=== PATIENT | female | born 1990 | race Caucasian/White ===

== ENCOUNTER → 2017-10-26 11:59 | Outpatient (CLI) | payer OTHER, SELFPAY ==
[2017-10-26 11:12] VITALS: BP 114/66; BMI 20.9
--- NOTE | 2017-10-26 12:02 | US_ITS ---
STUDY: SECOND AND THIRD TRIMESTER OBSTETRICAL ULTRASOUND REASON FOR EXAM: Female, 27 years old. Routine survey. LMP: June 07, 2017 TECHNIQUE: Transabdominal PRIOR ULTRASOUND: None. FINDINGS: There is a single intrauterine fetus. The fetus is in a variable presentation. There is demonstrated cardiac activity with a heart rate of 150 bpm. There is a normal amniotic fluid volume. The largest amniotic fluid pocket measures 6.3 cm x 4.9 cm. The placenta is anterior in location and is not low lying. There are Grade 0 placental changes. A placental badillo is seen measuring 2.8 cm x 1.3 cm x 1.1 cm. The cervix measures 4.2 cm in length. The adnexal regions are not visualized. BIOMETRY: BPD: 4.84 cm: 20 weeks, 5 days HC: 18.58 cm: 21 weeks, 0 days AC: 16.68 cm: 21 weeks, 5 days FL: 3.42 cm: 20 weeks, 6 days CI: 75% FL/BPD: 71% FL/HC: FL/AC: 21% HC/AC: 1.11 age by current US: 21 weeks, 1 days. RAMA by current US: March 07, 2018. Estimated weight: 407 grams, +/- 60 grams, 94 %. Age by LMP: 20 weeks, 1 days. RAMA by LMP: March 14, 2018. ANATOMY: Gender: Male Cranium: Normal lateral ventricles. Normal choroid plexus. Normal cerebellum. Normal cisterna magna. Normal face, nose and lips. Chest: Normal 4-chamber heart. Abdomen/Pelvis: Normal diaphragm. Normal stomach. Normal abdominal wall. Normal cord insertion. Normal 3 vessel cord. Normal kidneys. Normal bladder. Spine: Normal cervical spine. Normal thoracic spine. Normal lumbar spine. Normal sacrum. Extremities: Normal bilateral upper extremities. Normal bilateral lower extremities. US/OB Anatomy Scan IMPRESSION: Single live intrauterine gestation with a mean gestational age of 21 weeks and 1 day. Electronically Signed: Fitz Juan MD at 13:54 EST Tel [phone], Service support ,
== END ==
PROVIDERS: Family Provider Family Medicine; PCP Family Medicine; Visit Provider Obstetrics & Gynecology
DX: Z34.91 Encounter for supervision of normal pregnancy, unspecified, first trimester (principal); Z3A.00 Weeks of gestation of pregnancy not specified
CPT/HCPCS: 76805

== ENCOUNTER 2017-12-03 20:10 | Outpatient (CLI) | payer OTHER, SELFPAY ==
[2017-12-03 20:33] VITALS: BMI 21.1
[2017-12-03 20:50] LABS: Mucous, Urine 0 SEEN /hpf (<or=2+); Red Blood Cells-Urine 0 SEEN /hpf (0-5)
[2017-12-03 20:57] LABS: Color, Urine Yellow (Yellow); Glucose, Dipstick Normal (Normal); Ketone-Dipstick Negative (Negative); Leukocyte Esterase-Dipstick 25 /ul (Negative); Nitrite-Dipstick Negative (Negative); Occult Blood-Urine Negative /ul (Negative); Protein-Dipstick Negative (Negative); Specific Gravity, Urine 1.025 (1.002-1.030); Urine Bilirubin Dipstick Negative (Negative); Urine Clarity Sl. Cloudy (Clear); Urine Urobilinogen 1 mg/dl (Normal)
[2017-12-03 21:43] LABS: Squamous Epithelial Cells - UA 0-5 SEEN /hpf (5-10); White Blood Cells 5-10 SEEN /hpf (0-5)
[2017-12-03 21:44] LABS: Bacteria 1+ /hpf (None Seen)
[2017-12-03] MEDS: Lactated Ringers 1,000 ML 999 ML IV (22:39)
[2017-12-03] MEDS: Cefazolin 2 GM in 0.9% Normal Saline 100 ML IV (22:59)
[2017-12-03] MEDS: Lactated Ringers 1,000 ML 200 ML IV (23:39)
[2017-12-04 00:40] VITALS: RESP 18
--- NOTE | 2017-12-04 07:08 | OB.TRI.NOTE ---
History of Present Illness Date of Service: 12/03/17 Was patient seen by the physician?: No Reason For Visit: CRAMPING, BLEEDING Date of Service: 12/03/17 Gestational age: 25 weeks History of Present Illness: 25 weeks presents with lower pelvic cramping and dysuria, possible uti on ua. cervix closed reassruing tracing, irritability seen on monitor Home Medications Medication Instructions Recorded omeprazole 20 mg capsule,delayed 40 mg PO QDAY 08/31/17 release 1 tab PO QDAY 08/31/17 vitamin,calcium,wcucfzch-slmn-riuob acid tablet Ferrous Sulfate [Iron] 325 mg PO QHS 12/03/17 Allergies No Known Allergies Allergy (Verified 12/03/17 20:32) Physical Exam Vitals: Vital Signs Resp 18 12/04/17 00:40 NST - FHR Rate Baby A Baseline: 140 Variability:: Moderate Accelerations:: 10 x 10 Decelerations:: None NST Reactive:: Yes FHR Category:: Category I Uterine Activity:: irritability Impression/Plan 27 yo 25w4d presents with uti, threatened ptl no cervical change, ancef given will dc home on keflex.
== END 2017-12-04 00:40 | disposition home or self-care (01) ==
LOC: WPOUT 20:15 → WP 20:16
PROVIDERS: Family Provider Family Medicine; PCP Family Medicine; Visit Provider Obstetrics & Gynecology
DX: O23.42 Unspecified infection of urinary tract in pregnancy, second trimester (principal); O47.02 False labor before 37 completed weeks of gestation, second trimester; Z3A.25 25 weeks gestation of pregnancy
CPT/HCPCS: 96361; 96365; 59025; 59050; 81001; 87086; 87088; 99218; J7120; G0378

== ENCOUNTER → 2017-12-21 11:02 | Outpatient (CLI) | payer OTHER, SELFPAY ==
[2017-12-21 11:28] LABS: Absolute Lymphocyte Count 1.05 X10^3/ul (0.83-4.51); Absolute Neutrophil Count 5.8 X10^3/uL (2.0-7.7); Eosinophil# 0.12 X10^3/uL; Eosinophils% 1.6 % (0-5); Hematocrit 32.7 % (37-47); Hemoglobin 10.7 g/dl (12.0-15.0); Lymphocyte # 1.05 X10^3/ul (4.0); Mean Corp Hgb Conc 32.7 g/gl (32-36); Mean Corpuscular Hgb 27.9 pg (27.0-32.0); Mean Corpuscular Volume 85.2 fL (81-99); Mean Platelet Vol. 9.8 fl (6.2-12.0); Monocyte# 0.56 X10^3/uL; Monocyte% 7.5 % (0-10); Neutrophil # 5.76 X10^3/uL (2.7-7.7); Neutrophil % 76.8 % (47-70); Platelet Count 240 K/mm3 (150-450); RBC Distribution Width CV 14.9 % (11.6-14.6); RBC Distribution Width SD 46.9 fl (35.1-43.9); Red Blood Count 3.84 M/mm3 (4.2-5.4); White Blood Count 7.5 K/mm3 (4.4-11.0)
[2017-12-21 11:29] LABS: POSITIVE COUNT NO; POSITIVE DIFFERENTIAL NO; POSITIVE MORPHOLOGY NO
[2017-12-21 11:45] LABS: Glucose Challenge Gest 1H 50g 115 mg/dL (70-140)
== END ==
PROVIDERS: Family Provider Family Medicine; PCP Family Medicine; Visit Provider Obstetrics & Gynecology
DX: Z34.90 Encounter for supervision of normal pregnancy, unspecified, unspecified trimester (principal)
CPT/HCPCS: 36415; 82950; 85025

== ENCOUNTER 2017-12-29 11:30 | Outpatient (CLI) | payer OTHER, SELFPAY ==
[2017-12-29 12:36] VITALS: BMI 22.8
[2017-12-29 12:36] LABS: Protein, Urine (Random) 14.2 mg/dL (<11.9); Protein:Creat Ratio 169 mg/g CRE (0-200)
--- NOTE | 2017-12-30 02:28 | OB.TRI.NOTE ---
History of Present Illness Date of Service: 12/29/17 Was patient seen by the physician?: Yes Reason For Visit: ELEVATED BP Date of Service: 12/29/17 Final RAMA: 03/14/18 Gestational age: 29 Weeks and 3 Days History of Present Illness: 27 yo @ 29w2d presents with elevated bps in her PCP office when diagnosed with bilateral ear infections and strep throat, although her bps are normal here in triage. she has also started having irritability contractions but no vb lof. Home Medications Medication Instructions Recorded omeprazole 20 mg capsule,delayed 40 mg PO QDAY 08/31/17 release 1 tab PO QDAY 08/31/17 vitamin,calcium,qbdrojxt-dkyk-incwy acid tablet Ferrous Sulfate [Iron] 325 mg PO QHS 12/03/17 Allergies No Known Allergies Allergy (Verified 12/21/17 11:33) - Pertinent Past Medical History Pertinent Past Medical History: Past Surgical History (Last Reviewed 12/21/17 @ 11:34 by Judi Mistry) History of tonsillectomy (Acute) Mom's Labs & Results 12/29/17 12:20 U Random Total Protein 14.2 H Urine Creatinine 83.90 Protein/Creatinin Ratio 169 Social History Smoking Status Never smoker All Active Problems (Last Reviewed 12/21/17 @ 11:34 by Judi Mistry) Anemia affecting (Acute) Supervision of normal (Acute) ROS: General: negative 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 GI: otherwise negative unless documented in hpi Physical Exam General: Alert Cardiovascular: Regular rate Lungs: Normal air movement Abdomen: Soft, Non Tender, Gravid Extremities:: No edema Estimated gestational size: Small for gestational age Presentation: Cephalic Cervix Dilation (cm): 0 Station: -3 Effacement (%): 0 NST - FHR Rate Baby A Baseline: 140 Variability:: Moderate Accelerations:: 15 x 15 Decelerations:: None NST Reactive:: Yes FHR Category:: Category I Uterine Activity:: q2-3 irritability Impression/Plan 29 weeks threatened PTL normal bps no cervical change- dc home ptl precautions
--- NOTE | 2017-12-30 02:33 | OB.TRI.HP_ITS ---
History of Present Illness Date of Service: 12/29/17 Was patient seen by the physician?: Yes Reason For Visit: ELEVATED BP Date of Service: 12/29/17 Final RAMA: 03/14/18 Gestational age: 29 Weeks and 3 Days History of Present Illness: 27 yo @ 29w2d presents with elevated bps in her PCP office when diagnosed with bilateral ear infections and strep throat, although her bps are normal here in triage. she has also started having irritability contractions but no vb lof. Home Medications Medication Instructions Recorded omeprazole 20 mg capsule,delayed 40 mg PO QDAY 08/31/17 release 1 tab PO QDAY 08/31/17 vitamin,calcium,jybfyakr-cysc-lkntt acid tablet Ferrous Sulfate [Iron] 325 mg PO QHS 12/03/17 Allergies No Known Allergies Allergy (Verified 12/21/17 11:33) - Pertinent Past Medical History Pertinent Past Medical History: Past Surgical History (Last Reviewed 12/21/17 @ 11:34 by Judi Mistry) History of tonsillectomy (Acute) Mom's Labs & Results 12/29/17 12:20 U Random Total Protein 14.2 H Urine Creatinine 83.90 Protein/Creatinin Ratio 169 Social History Smoking Status Never smoker All Active Problems (Last Reviewed 12/21/17 @ 11:34 by Judi Mistry) Anemia affecting (Acute) Supervision of normal (Acute) ROS: General: negative Tools And Parts Attendant: see hpi GI: otherwise negative unless documented in hpi Physical Exam General: Alert Cardiovascular: Regular rate Lungs: Normal air movement Abdomen: Soft, Non Tender, Gravid Extremities:: No edema Estimated gestational size: Small for gestational age Presentation: Cephalic Cervix Dilation (cm): 0 Station: -3 Effacement (%): 0 NST - FHR Rate Baby A Baseline: 140 Variability:: Moderate Accelerations:: 15 x 15 Decelerations:: None NST Reactive:: Yes FHR Category:: Category I Uterine Activity:: q2-3 irritability Impression/Plan 29 weeks threatened PTL normal bps no cervical change- dc home ptl precautions
== END 2017-12-29 13:40 | disposition home or self-care (01) ==
LOC: WPOUT 11:34 → WP 11:34
PROVIDERS: Family Provider Family Medicine; PCP Family Medicine; Visit Provider Obstetrics & Gynecology
DX: O47.03 False labor before 37 completed weeks of gestation, third trimester (principal); O36.5930 Maternal care for other known or suspected poor fetal growth, third trimester, not applicable or unspecified; O99.013 Anemia complicating pregnancy, third trimester; D64.9 Anemia, unspecified; Z79.899 Other long term (current) drug therapy; Z3A.29 29 weeks gestation of pregnancy
CPT/HCPCS: 59025; 59050; 82570; 84156; 99218; G0378

== ENCOUNTER → 2018-01-18 11:09 | Outpatient (CLI) | payer OTHER, SELFPAY ==
[2018-01-18 12:28] LABS: Absolute Lymphocyte Count 1.31 X10^3/ul (0.83-4.51); Basophil# 0.01 X10^3/uL; Basophil% 0.1 % (0-1); Eosinophils% 1.2 % (0-5); Hematocrit 30.3 % (37-47); Hemoglobin 10.1 g/dl (12.0-15.0); Lymphocyte # 1.31 X10^3/ul (4.0); Lymphocyte % 15.8 % (19-41); Mean Corp Hgb Conc 33.3 g/gl (32-36); Mean Corpuscular Hgb 28.3 pg (27.0-32.0); Mean Corpuscular Volume 84.9 fL (81-99); Mean Platelet Vol. 10.5 fl (6.2-12.0); Monocyte# 0.91 X10^3/uL; Neutrophil # 5.96 X10^3/uL (2.7-7.7); Neutrophil % 71.7 % (47-70); Platelet Count 267 K/mm3 (150-450); RBC Distribution Width CV 13.6 % (11.6-14.6); RBC Distribution Width SD 40.7 fl (35.1-43.9); Red Blood Count 3.57 M/mm3 (4.2-5.4); White Blood Count 8.3 K/mm3 (4.4-11.0)
[2018-01-18 12:33] LABS: POSITIVE COUNT NO; POSITIVE DIFFERENTIAL NO; POSITIVE MORPHOLOGY NO
== END ==
PROVIDERS: Family Provider Family Medicine; PCP Family Medicine; Visit Provider Nurse Practitioner Women's Health
DX: O99.019 Anemia complicating pregnancy, unspecified trimester (principal); Z3A.00 Weeks of gestation of pregnancy not specified
CPT/HCPCS: 36415; 85025

== ENCOUNTER 2018-01-21 12:10 | Outpatient (CLI) | payer OTHER, SELFPAY ==
[2018-01-21 12:26] VITALS: BMI 22.4
--- NOTE | 2018-01-21 13:27 | US_ITS ---
STUDY: SECOND AND THIRD TRIMESTER OBSTETRICAL ULTRASOUND - LIMITED REASON FOR EXAM: Female, 27 years old. Evaluate growth and SKINNY. Patient fell recently LMP: Unknown. PRIOR ULTRASOUND: 10/26/2017 TECHNIQUE: Transabdominal ultrasound evaluation was performed. FINDINGS: There is a single intrauterine fetus. The fetus is in a cephalic presentation. There is demonstrated cardiac activity with a heart rate of 146 bpm. There is a normal amniotic fluid volume. The amniotic fluid index (SKINNY) is 17.9 cm. The placenta is anterior in location and is not low lying. There are Grade 2 placental changes. The cervix measures 4.3 cm in length. BIOMETRY: BPD: 8.3 cm: 33 weeks, 4 days HC: 30.4 cm: 33 weeks, 6 days AC: 29.1 cm: 33 weeks, 1 days FL: 6.4 cm: 33 weeks, 0 days Age by LMP: 32 weeks, 4 days. RAMA by LMP: 03/14/2018. age by prior US: 33 weeks, 4 days. RAMA by prior US: 03/07/2018. age by current US: 33 weeks, 3 days. RAMA by current US: 03/08/2018. Estimated weight: 2121 grams, +/- 310 grams, 57 percentile. US/OB Limited With Biometrics IMPRESSION: Single live intrauterine as detailed above with SKINNY of 17.9 cm. No evidence of complications. Electronically Signed: Mickey Christy DO at 16:16 EDT Tel , Service support ,
[2018-01-21 14:32] LABS: Mucous, Urine 0 SEEN /hpf (<or=2+); Red Blood Cells-Urine 0 SEEN /hpf (0-5)
[2018-01-21 14:40] LABS: Color, Urine Yellow (Yellow); Glucose, Dipstick Normal (Normal); Ketone-Dipstick 50 mg/dl (Negative); Leukocyte Esterase-Dipstick 100 /ul (Negative); Nitrite-Dipstick Negative (Negative); Occult Blood-Urine Negative /ul (Negative); Protein-Dipstick Negative (Negative); Specific Gravity, Urine 1.005 (1.002-1.030); Urine Bilirubin Dipstick Negative (Negative); Urine Clarity Clear (Clear); Urine Urobilinogen Normal (Normal)
[2018-01-21 14:48] LABS: Bacteria 1+ /hpf (None Seen); Squamous Epithelial Cells - UA 0-5 SEEN /hpf (5-10); White Blood Cells 10-25 SEEN /hpf (0-5)
--- NOTE | 2018-01-21 15:00 | OB.TRI.NOTE ---
History of Present Illness Date of Service: 01/21/18 Was patient seen by the physician?: Yes Reason For Visit: MONITORING FOR FALL Date of Service: 01/21/18 Final RAMA: 03/14/18 Gestational age: 33 Weeks and 0 Days History of Present Illness: 27yo presents s/p fall at approximately 0700h with contractions. She was going up the stairs and caught her foot on the tread and fell down less than half the flight. She fell on her back and denies abdominal trauma, no lightheadedness before episode. She began abdulaziz approximately 2 hours later. She reports contractions q2-5 minutes and painful. No vaginal bleeding, leaking of fluid. Fetus is active. Her reports that she is prone to contractions however and was here 2-3 weeks ago for contractions. Home Medications Medication Instructions Recorded omeprazole 20 mg capsule,delayed 40 mg PO QDAY 08/31/17 release 1 tab PO QDAY 08/31/17 vitamin,calcium,wzzqtinf-gcwx-jcdba acid tablet Ferrous Sulfate [Iron] 325 mg PO QHS 12/03/17 Cephalexin [Keflex] 500 mg PO Q8H #18 cap 01/22/18 Allergies No Known Allergies Allergy (Verified 01/21/18 11:49) - Pertinent Past Medical History Pertinent Past Medical History: Prior section x 1 Physical Exam Vitals: Vital Signs Temp Pulse Resp BP 98.1 F 80 16 113/55 L 01/22/18 00:55 01/22/18 00:55 01/22/18 00:55 01/22/18 00:55 General: Alert, Oriented x3, Cooperative, No apparent distress Cardiovascular: Regular Rhythm Lungs: Normal air movement Abdomen: Soft, Non Tender, Non-Distended, Gravid, - - Fundus soft between contractions Extremities:: No edema Estimated gestational size: Appropriate for gestational size Cervix Dilation (cm): 0 Station: -3 Effacement (%): 0 NST - FHR Rate Baby A Baseline: 135 Variability:: Moderate Accelerations:: 15 x 15 Decelerations:: None NST Reactive:: Yes FHR Category:: Category I Uterine Activity:: 3/10 min Impression/Plan 27yo at 32 4/7wga with contractions following a fall, no abdominal trauma with contractions. -Rh positive -Suspect false labor, however, cannot rule out sx 2/2 fall. -Recommend prolonged observation -Oral rehydration -Consider d/c home when contractions sarah or 24 hours post fall. Code Visit Office Visits / Consults: [id number] OV L3 New
[2018-01-21] MEDS: Cephalexin 500 MG Capsule PO ×2 (16:49→23:07)
[2018-01-21] MEDS: Acetaminophen 500 MG Tablet 1000 MG PO (20:29)
--- NOTE | 2018-01-22 00:15 | OB.TRI.PN ---
Progress Notes Date of Service: 01/22/18 Progress Note: FHR remains Cat I and contractions spaced with no worsening of sx. Will d/c home.
[2018-01-22 00:55] VITALS: BP 113/55; PULSE 80; RESP 16; TEMP 36.7
[2018-01-22] MEDS: Cephalexin 500 MG Capsule PO (00:55)
== END 2018-01-22 00:55 | disposition home or self-care (01) ==
LOC: WPOUT 12:19 → WP 12:20
PROVIDERS: Family Provider Family Medicine; PCP Family Medicine; Visit Provider Obstetrics & Gynecology
DX: Z04.3 Encounter for examination and observation following other accident (principal); W10.9XXA Fall (on) (from) unspecified stairs and steps, initial encounter; Y93.9 Activity, unspecified; Y92.9 Unspecified place or not applicable; Y99.9 Unspecified external cause status; N85.8 Other specified noninflammatory disorders of uterus; O34.219 Maternal care for unspecified type scar from previous cesarean delivery; Z3A.33 33 weeks gestation of pregnancy
CPT/HCPCS: 59025; 59050; 76816; 81001; 87086; 87088; 99218; G0378

== ENCOUNTER 2018-01-26 22:04 | Observation (INO) | payer OTHER, SELFPAY ==
[2018-01-26 20:54] VITALS: BMI 22.4
[2018-01-26 22:19] LABS: Bacteria 0 SEEN /hpf (None Seen); Mucous, Urine 0 SEEN /hpf (<or=2+); Red Blood Cells-Urine 0 SEEN /hpf (0-5); White Blood Cells 0 SEEN /hpf (0-5)
[2018-01-26 22:27] LABS: Color, Urine Straw (Yellow); Glucose, Dipstick Normal (Normal); Ketone-Dipstick Negative (Negative); Leukocyte Esterase-Dipstick 25 /ul (Negative); Nitrite-Dipstick Negative (Negative); Occult Blood-Urine Negative /ul (Negative); Protein-Dipstick Negative (Negative); Urine Bilirubin Dipstick Negative (Negative); Urine Clarity Clear (Clear); Urine Urobilinogen Normal (Normal)
[2018-01-26 22:27] LABS: Fetal Fibronectin Negative
[2018-01-26 22:54] LABS: Squamous Epithelial Cells - UA 0-5 SEEN /hpf (5-10)
[2018-01-26] MEDS: Terbutaline 1 MG/ML Vial 0.25 MG SC (23:30)
[2018-01-26] MEDS: Lactated Ringers 1,000 ML 999 ML IV (23:30)
[2018-01-27] MEDS: 0.9% Saline Lock 10 ML Syringe IV (00:41)
[2018-01-27] MEDS: Betamethasone/Betamethasone 30 MG/5 ML Vial 12 MG IM (05:42)
--- NOTE | 2018-01-27 06:17 | OB.TRI.NOTE ---
History of Present Illness Date of Service: 01/27/18 Was patient seen by the physician?: Yes Reason For Visit: CRAMPING Date of Service: 01/27/18 Final RAMA: 03/14/18 Gestational age: 33 Weeks and 3 Days History of Present Illness: 27 yo @ 33w3d presents with contrcations varying in intensity. s he denies any vb or lof but had increased discharge. she deneis any other symptoms. Home Medications Medication Instructions Recorded omeprazole 20 mg capsule,delayed 40 mg PO QDAY 08/31/17 release 1 tab PO QDAY 08/31/17 vitamin,calcium,yzxgsufc-xbks-npuvj acid tablet Ferrous Sulfate [Iron] 325 mg PO QHS 12/03/17 Cephalexin [Keflex] 500 mg PO Q8H 01/26/18 Allergies No Known Allergies Allergy (Verified 01/26/18 22:04) - Pertinent Past Medical History Pertinent Past Medical History: Past Surgical History (Last Reviewed 01/21/18 @ 11:49 by Francheska Durham) History of tonsillectomy (Acute) Mom's Labs & Results 01/26/18 01/26/18 21:13 22:10 Urine Color Straw Urine Clarity Clear Urine pH 7.0 Ur Specific [place] 1.010 Urine Protein Negative Urine Glucose (UA) Normal Urine Ketones Negative Urine Occult Blood Negative Urine Nitrite Negative Urine Bilirubin Negative Urine Urobilinogen Normal Ur Leukocyte Esterase 25 H Urine RBC 0 SEEN Urine WBC 0 SEEN Ur Squamous Epith Cells 0-5 SEEN Urine Bacteria 0 SEEN Urine Mucus 0 SEEN Fibronectin Negative Social History Smoking Status Never smoker ROS: General: negative 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 isolated variables overnight Impression/Plan 27 yo @ 33w3d presents with threatened PTL 1. cervix not dilated and FFN negative. s/p terb x 1. 2. mild occasional variable decels- SKINNY 21 cm done at bedside and BPP done and 10/10. overall reassuring. 3. BMZ x 1 given.
--- NOTE | 2018-01-27 06:22 | OB.TRI.HP_ITS ---
History of Present Illness Date of Service: 01/27/18 Was patient seen by the physician?: Yes Reason For Visit: CRAMPING Date of Service: 01/27/18 Final RAMA: 03/14/18 Gestational age: 33 Weeks and 3 Days History of Present Illness: 27 yo @ 33w3d presents with contrcations varying in intensity. s he denies any vb or lof but had increased discharge. she deneis any other symptoms. Home Medications Medication Instructions Recorded omeprazole 20 mg capsule,delayed 40 mg PO QDAY 08/31/17 release 1 tab PO QDAY 08/31/17 vitamin,calcium,gfveuzmp-zwbo-cjzbb acid tablet Ferrous Sulfate [Iron] 325 mg PO QHS 12/03/17 Cephalexin [Keflex] 500 mg PO Q8H 01/26/18 Allergies No Known Allergies Allergy (Verified 01/26/18 22:04) - Pertinent Past Medical History Pertinent Past Medical History: Past Surgical History (Last Reviewed 01/21/18 @ 11:49 by Francheska Durham) History of tonsillectomy (Acute) Mom's Labs & Results 01/26/18 01/26/18 21:13 22:10 Urine Color Straw Urine Clarity Clear Urine pH 7.0 Ur Specific [place] 1.010 Urine Protein Negative Urine Glucose (UA) Normal Urine Ketones Negative Urine Occult Blood Negative Urine Nitrite Negative Urine Bilirubin Negative Urine Urobilinogen Normal Ur Leukocyte Esterase 25 H Urine RBC 0 SEEN Urine WBC 0 SEEN Ur Squamous Epith Cells 0-5 SEEN Urine Bacteria 0 SEEN Urine Mucus 0 SEEN Fibronectin Negative Social History Smoking Status Never smoker ROS: General: negative 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 isolated variables overnight Impression/Plan 27 yo @ 33w3d presents with threatened PTL 1. cervix not dilated and FFN negative. s/p terb x 1. 2. mild occasional variable decels- SKINNY 21 cm done at bedside and BPP done and 10/10. overall reassuring. 3. BMZ x 1 given.
[2018-01-27] MEDS: Acetaminophen 500 MG Tablet 1000 MG PO (07:31)
== END 2018-01-27 09:13 | disposition home or self-care (01) ==
LOC: WPOUT 01-27 09:17
PROVIDERS: Admitting Provider Obstetrics & Gynecology; Family Provider Family Medicine; PCP Family Medicine; Visit Provider Obstetrics & Gynecology
DX: O60.03 Preterm labor without delivery, third trimester (principal); Z3A.33 33 weeks gestation of pregnancy; O76 Abnormality in fetal heart rate and rhythm complicating labor and delivery
CPT/HCPCS: 96360; 96372; 59025; 59050; 76815; 81001; 82731; 99218; J7120; A4216; G0378; J0702

== ENCOUNTER 2018-01-28 06:49 | Outpatient (CLI) | payer OTHER, SELFPAY ==
[2018-01-28] MEDS: Betamethasone/Betamethasone 30 MG/5 ML Vial 12 MG IM (07:06)
--- NOTE | 2018-01-31 03:36 | OB.TRI.NOTE ---
History of Present Illness Date of Service: 01/28/18 Was patient seen by the physician?: No Reason For Visit: R/O LABOR History of Present Illness: celestone injection Home Medications Medication Instructions Recorded omeprazole 20 mg capsule,delayed 40 mg PO QDAY 08/31/17 release 1 tab PO QDAY 08/31/17 vitamin,calcium,cohaftda-qbal-vxhop acid tablet Ferrous Sulfate [Iron] 325 mg PO QHS 12/03/17 Cephalexin [Keflex] 500 mg PO Q8H 01/26/18 Allergies No Known Allergies Allergy (Verified 01/26/18 22:04) Impression/Plan follow up celestone injection
== END 2018-01-28 07:13 | disposition home or self-care (01) ==
LOC: WPOUT 06:53 → WP 06:54
PROVIDERS: Family Provider Family Medicine; PCP Family Medicine; Visit Provider Obstetrics & Gynecology
DX: Z34.90 Encounter for supervision of normal pregnancy, unspecified, unspecified trimester (principal); Z3A.00 Weeks of gestation of pregnancy not specified
CPT/HCPCS: 96372; 99218; G0378; J0702

== ENCOUNTER 2018-02-10 15:00 | Outpatient (CLI) | payer OTHER, SELFPAY ==
[2018-02-10 15:14] VITALS: BMI 22.3
--- NOTE | 2018-02-19 09:34 | OB.TRI.NOTE ---
- Problem List (1) Decreased movement Status: Acute History of Present Illness Reason For Visit: DECREASED MOVEMENT Allergies No Known Allergies Allergy (Verified 02/15/18 11:38) - Pertinent Past Medical History Surgical History: Past Surgical History (Last Reviewed 02/15/18 @ 11:37 by Phyllis Jarrell) History of tonsillectomy NST - FHR Rate Baby A Baseline: 140 Variability:: Moderate Accelerations:: 15 x 15 Decelerations:: None NST Reactive:: Yes FHR Category:: Category I Uterine Activity:: irritability
== END 2018-02-10 16:00 | disposition home or self-care (01) ==
LOC: WPOUT 15:09 → WP 15:10
PROVIDERS: Family Provider Family Medicine; PCP Family Medicine; Visit Provider Obstetrics & Gynecology
DX: O36.8190 Decreased fetal movements, unspecified trimester, not applicable or unspecified (principal); Z3A.00 Weeks of gestation of pregnancy not specified
CPT/HCPCS: 59025; 59050; 99218; G0378

== ENCOUNTER → 2018-02-15 15:17 | Outpatient (CLI) | payer OTHER, SELFPAY ==
[2018-02-15 16:19] LABS: Group B Strep DNA By PCR Negative (Negative); Internal Control PASS; Probe Check PASS; Specimen Processing Control PASS
== END ==
PROVIDERS: Family Provider Family Medicine; PCP Family Medicine; Visit Provider Obstetrics & Gynecology
DX: Z34.81 Encounter for supervision of other normal pregnancy, first trimester (principal)
CPT/HCPCS: 87081; 87653

== ENCOUNTER 2018-02-26 16:55 | Outpatient (CLI) | payer OTHER, SELFPAY ==
--- NOTE | 2018-02-26 16:55 | DT_ITS ---
This patient was seen during an EMR downtime February 21, 2018 - February 28, 2018. This patient may have a combination of paper and electronic documentation or all paper documentation. All documentation is viewable within the e-chart portion of [facility] for each patient visit.
[2018-03-01 21:09] LABS: ROM Internal Control Test YES-OK TO RESULT pt. (Internal QC); ROM Patient Test Negative (Negative)
== END 2018-02-26 18:05 | disposition home or self-care (01) ==
LOC: WPOUT 02-27 14:46 → WP 02-27 14:49
PROVIDERS: Family Provider Family Medicine; PCP Family Medicine; Visit Provider Obstetrics & Gynecology
DX: O47.9 False labor, unspecified (principal); Z3A.00 Weeks of gestation of pregnancy not specified
CPT/HCPCS: 59025; 59050; 84112; 99218; G0378

== ENCOUNTER 2018-03-06 15:05 | Outpatient (CLI) | payer OTHER, SELFPAY ==
[2018-03-06 15:24] VITALS: BMI 23.3
--- NOTE | 2018-03-06 17:00 | OB.TRI.NOTE ---
- Problem List (1) False labor Status: Acute History of Present Illness Date of Service: 03/06/18 Was patient seen by the physician?: Yes Reason For Visit: RULE OUT LABOR Date of Service: 03/06/18 History of Present Illness: regular ctx Allergies No Known Allergies Allergy (Verified 02/15/18 11:38) - Pertinent Past Medical History Surgical History: Past Surgical History (Last Reviewed 02/15/18 @ 11:37 by Phyllis Jarrell) History of tonsillectomy NST - FHR Rate Baby A Baseline: 130-140 Variability:: Moderate Decelerations:: None NST Reactive:: Yes FHR Category:: Category I Uterine Activity:: q 2-5 Impression/Plan false labor no cervical change dc home labor precautions
== END 2018-03-06 16:47 | disposition home or self-care (01) ==
LOC: WPOUT 15:15 → WP 15:16
PROVIDERS: Family Provider Family Medicine; PCP Family Medicine; Visit Provider Obstetrics & Gynecology
DX: O47.9 False labor, unspecified (principal); Z3A.00 Weeks of gestation of pregnancy not specified
CPT/HCPCS: 59025; 99218; G0378

== ENCOUNTER 2018-03-09 17:50 | Inpatient (IN) | payer OTHER, SELFPAY ==
[2018-03-09 18:20] VITALS: BMI 23.4
[2018-03-09] MEDS: Lactated Ringers 1,000 ML 50 ML IV ×2 (18:20→19:18)
[2018-03-09 18:35] LABS: Hematocrit 33.1 % (37-47); Hemoglobin 11.2 g/dl (12.0-15.0); Mean Corp Hgb Conc 33.8 g/gl (32-36); Mean Corpuscular Volume 82.8 fL (81-99); Mean Platelet Vol. 10.6 fl (6.2-12.0); Platelet Count 254 K/mm3 (150-450); RBC Distribution Width CV 14.5 % (11.6-14.6); Scan Indicated on CBC? Y/N NO; White Blood Count 13.5 K/mm3 (4.4-11.0)
[2018-03-09] MEDS: fentaNYL-bupivacaine (epidural) 100 ML BAG EPIDURAL (19:54)
[2018-03-09] MEDS: Amnioinfusion- 0.9% NS 1,000 ML IV.SOLN. 500 ML INTRA-UTER (20:23)
--- NOTE | 2018-03-09 20:27 | PCM.HP.OB ---
- Problem List (1) Active labor at term Status: Acute (2) Anemia affecting Status: Acute Qualifiers: (3) Supervision of normal Status: Acute Qualifiers: Comment: PRR RAMA 03/14/18 boy Kenneth PC Kera ryder History Date of Admission: 03/09/18 Final RAMA: 03/12/18 Gestational age: 39 Weeks and 4 Days History of this : This is a 27 year-old, at 39 weeks gestational age. Surgical History: Surgical History (Last Reviewed 03/09/18 @ 11:02 by Judi Mistry) History of tonsillectomy Z98.890, Z90.89 Allergies No Known Allergies Allergy (Verified 03/09/18 11:02) Home Medications: Home Medications omeprazole 20 mg capsule,delayed release 40 mg PO QDAY 08/31/17 vitamin,calcium,svtyiikx-posy-tpmwz acid tablet 1 tab PO QDAY 08/31/17 Ferrous Sulfate [Iron] 325 mg PO QHS 12/03/17 Smoking Status: Never smoker Alcohol: None Number of Fetus(es): 1 Heart Tracin min-mod variability reactive, isolated late decel. then recurrent periodic variables TOCO Analysis: q2-3 History Past Pregnancies: Past Pregnancies Pregancy History 2 Elective abortions Hx Para 1 Spontaneous abortions Hx # Term Pregnancies Ectopic pregnancies Hx # Pregnancies Multiple births # of living children Past Pregnancies Del. Date Name GA/Weeks Outcome Route Bth Weight Infant Gen Labor Lgth Anesthesia Del Locatn Provider FOB 12/07/11 Kera Le live - full term Female [place]/[facility] Vacceriello OB Visit RAMA Calculator Estimated Delivery Date 03/14/18 Based on Ultrasound Date 07/20/17 Current WG 39w 2d Number 1 Labs: Mom's Labs & Results 03/09/18 03/09/18 18:20 18:20 WBC 13.5 H RBC 4.00 L Hgb 11.2 L Hct 33.1 L MCV 82.8 MCH 28.0 MCHC 33.8 RDW 14.5 RDW Differential 44.0 H Plt Count 254 MPV 10.6 Blood Type A POSITIVE Antibody Screen NEGATIVE Course Did the patient receive Yes care? Labs Blood Type: A RH: POSITIVE RPR/VDRL/Syphilis Nonreactive Rubella status Immune HbSAg Negative Date Done: 09/23/17 Chlamydia Negative Gonorrhea Negative HIV/AIDS Non-Reactive Group B Strep: Negative Current Obstetrical History Gestational Diabetes No Incompetent Cervix No Infertility No IUGR No Macrosomia No Hypertension/Pre-eclampsia No Placenta Previa/Abruption No PTL/PROM No Uterine anomaly No Oligohydramnios No Polyhydramnios No Multiple gestation No Past Medical History Asthma No Diabetes No Hypertension No Heart disease No Mitral valve prolapse No Neurologic/Seizure disorder/ No Migraines Kidney disease No Liver disease No Varicosities No Clotting disorders/Hx of DVT No Thyroid Dysfunction No Other medical diseases No Psychiatric disorders No Major trauma No Abnormal PAP smear No Sleep apnea No Mammogram in the last 2 years No Social History Marital Status: Alleged father RYDER LE Hx Smoking No Smoking Status Never smoker How long have you used NA substances (years)? Expected Delivery Method: Spontaneous Vaginal Describe any other labor & delivery plans:: Expected Delivery Route/Plan. vaginal. Specific Issue/Plans. declines flu and genetic testing. MC given. labor support person: Ryder. pain management: epidural. cut cord/dad catch: cord yes, catch unsure. : undecided. control planned: vasectomy Review of Systems Constitutional: Denies: Fever, Malaise Eyes: Denies: Blurred vision, Vision Change HEENT: Denies: Head Aches, Visual Changes Cardiovascular: Denies: Chest Pain, Palpitations Respiratory: Denies: Cough, Shortness of Breath, Wheezing Gastrointestinal: Denies: Abdominal Pain, Diarrhea, Nausea, Vomiting Genitourinary: Denies: Dysuria, Hematuria Musculoskeletal: Denies: Joint Pain, Muscle pain Skin: Denies: Lesions, Rash Neurological: Denies: Blurred vision, Focal weakness, Headaches Psychiatric: Denies: Anxiety, Depression Endocrine: Denies: Heat/ Cold Intolerance Hematologic/ Lymphatic: Denies: Easy Bruising, Easy Bleeding Physical Exam General: Alert, Cooperative, No apparent distress HEENT: Atraumatic, Normocephalic. Negative for: Thyromegaly, Lymphadenopathy Cardiovascular: Regular rate Lungs: Normal air movement Abdomen: Soft, Non Tender, Gravid Neurological: Deep Tendon Reflexes 2+/4 and Symmetrical, Neuro grossly intact. Negative for: Clonus CLIENT RELATIONSHIP MANAGER: Normal external genitalia. Negative for: Vulvar lesions Estimated gestational size: Appropriate for gestational size Presentation: Cephalic Assessment/Plan All Active Problems (Last Reviewed 03/09/18 @ 11:02 by Judi Mistry) False labor (Acute) Active labor at term (Acute) Decreased movement (Resolved) labor in second trimester with delivery in third trimester (Resolved) Anemia affecting (Acute) Supervision of normal (Acute) This is a 27 year-old, at 39 weeks gestational age. IAL exp management amnioinfusion for variables, position changes. s/p epi gbs neg
--- NOTE | 2018-03-09 20:31 | HP.PCM_ITS ---
- Problem List (1) Active labor at term Status: Acute (2) Anemia affecting Status: Acute Qualifiers: (3) Supervision of normal Status: Acute Qualifiers: Comment: PRR RAMA 03/14/18 boy Rogelioelian JOHN Kera ryder History Date of Admission: 03/09/18 Final RAMA: 03/12/18 Gestational age: 39 Weeks and 4 Days History of this : This is a 27 year-old, at 39 weeks gestational age. Surgical History: Surgical History (Last Reviewed 03/09/18 @ 11:02 by Judi Mistry) History of tonsillectomy Z98.890, Z90.89 Allergies No Known Allergies Allergy (Verified 03/09/18 11:02) Home Medications: Home Medications omeprazole 20 mg capsule,delayed release 40 mg PO QDAY 08/31/17 vitamin,calcium,tvmxthho-sxkq-wdbvh acid tablet 1 tab PO QDAY 08/31/17 Ferrous Sulfate [Iron] 325 mg PO QHS 12/03/17 Smoking Status: Never smoker Alcohol: None Number of Fetus(es): 1 Heart Tracin min-mod variability reactive, isolated late decel. then recurrent periodic variables TOCO Analysis: q2-3 History Past Pregnancies: Past Pregnancies Pregancy History 2 2 Elective abortions Hx Para 1 Spontaneous abortions Hx # Term Pregnancies Ectopic pregnancies Hx # Pregnancies Multiple births # of living children Past Pregnancies Del. Date Name GA/Weeks Outcome Route Bth Weight Infant Gen Labor Lgth Anesthesia Del Locatn Provider FOB 12/07/11 Kera Le live - full term Female [place]/ Pom[facility] Vacceriello OB Visit RAMA Calculator 2 Estimated Delivery Date 03/14/18 Based on Ultrasound Date 07/20/17 Current WG 39w 2d Number 1 Labs: Mom's Labs & Results 03/09/18 03/09/18 18:20 18:20 WBC 13.5 H RBC 4.00 L Hgb 11.2 L Hct 33.1 L MCV 82.8 MCH 28.0 MCHC 33.8 RDW 14.5 RDW Differential 44.0 H Plt Count 254 MPV 10.6 Blood Type A POSITIVE Antibody Screen NEGATIVE Course Did the patient receive Yes care? Labs Blood Type: A RH: POSITIVE RPR/VDRL/Syphilis Nonreactive Rubella status Immune HbSAg Negative Date Done: 09/23/17 Chlamydia Negative Gonorrhea Negative HIV/AIDS Non-Reactive Group B Strep: Negative Current Obstetrical History Gestational Diabetes No Incompetent Cervix No Infertility No IUGR No Macrosomia No Hypertension/Pre-eclampsia No Placenta Previa/Abruption No PTL/PROM No Uterine anomaly No Oligohydramnios No Polyhydramnios No Multiple gestation No Past Medical History Asthma No Diabetes No Hypertension No Heart disease No Mitral valve prolapse No Neurologic/Seizure disorder/ No Migraines Kidney disease No Liver disease No Varicosities No Clotting disorders/Hx of DVT No Thyroid Dysfunction No Other medical diseases No Psychiatric disorders No Major trauma No Abnormal PAP smear No Sleep apnea No Mammogram in the last 2 years No Social History Marital Status: Alleged father RYDER LE Hx Smoking No Smoking Status Never smoker How long have you used NA substances (years)? Expected Delivery Method: Spontaneous Vaginal Describe any other labor & delivery plans:: Expected Delivery Route/Plan. vaginal. Specific Issue/Plans. declines flu and genetic testing. MC given. labor support person: Ryder. pain management: epidural. cut cord/dad catch: cord yes, catch unsure. : undecided. control planned : vasectomy Review of Systems Constitutional: Denies: Fever, Malaise Eyes: Denies: Blurred vision, Vision Change HEENT: Denies: Head Aches, Visual Changes Cardiovascular: Denies: Chest Pain, Palpitations Respiratory: Denies: Cough, Shortness of Breath, Wheezing Gastrointestinal: Denies: Abdominal Pain, Diarrhea, Nausea, Vomiting Genitourinary: Denies: Dysuria, Hematuria Musculoskeletal: Denies: Joint Pain, Muscle pain Skin: Denies: Lesions, Rash Neurological: Denies: Blurred vision, Focal weakness, Headaches Psychiatric: Denies: Anxiety, Depression Endocrine: Denies: Heat/ Cold Intolerance Hematologic/ Lymphatic: Denies: Easy Bruising, Easy Bleeding Physical Exam General: Alert, Cooperative, No apparent distress HEENT: Atraumatic, Normocephalic. Negative for: Thyromegaly, Lymphadenopathy Cardiovascular: Regular rate Lungs: Normal air movement Abdomen: Soft, Non Tender, Gravid Neurological: Deep Tendon Reflexes 2+/4 and Symmetrical, Neuro grossly intact. 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 Negative for: Vulvar lesions Estimated gestational size: Appropriate for gestational size Presentation: Cephalic Assessment/Plan All Active Problems (Last Reviewed 03/09/18 @ 11:02 by Judi Mistry) False labor (Acute) Active labor at term (Acute) Decreased movement (Resolved) labor in second trimester with delivery in third trimester ( Resolved) Anemia affecting (Acute) Supervision of normal (Acute) This is a 27 year-old, at 39 weeks gestational age. IAL exp management amnioinfusion for variables, position changes. s/p epi gbs neg
[2018-03-09] MEDS: Oxytocin 30 units/NS 500 ml 30 UNITS/500 ML IV.SOLN 334 UNITS IV (22:45)
--- NOTE | 2018-03-09 22:59 | PCM.OB.VAG ---
- Problem List (1) Active labor at term Status: Acute (2) Anemia affecting Status: Acute Qualifiers: (3) Supervision of normal Status: Acute Qualifiers: Comment: PRR RAMA 03/14/18 boy Kenneth Cote nate Vaginal Delivery Maternal Presentation: Active Labor 27 yo @ 39w4d IAL Amniotic Membrane Rupture Type: Artificial Amniotic Fluid Description: Lightly stained meconium Final RAMA: 03/12/18 Gestational age: 39 Weeks and 4 Days Date of Procedure: 03/09/18 Pre-Operative Diagnosis: ial Post-Operative Diagnosis: same Surgery/ Procedure Performed: Spontaneous Vaginal Delivery Type of Anesthesia: Epidural Description of Procedure: Patient began pushing and delivered the head in the SUHA presentation. The head was delivered atraumatically and a tight nuchal cord ?2 was identified and reduced over the infant's head. The anterior and posterior shoulders delivered without complication followed by the rest of the infant and the infant was placed on the maternal abdomen. Cord was clamped and cut and gentle traction was applied to the cord and the placenta delivered spontaneously immediately following it was noted to be intact with three-vessel cord. The perineum and vagina were inspected and noted to have a small 1st degree laceration that was reapired with a stitch of 3-0 monocryl. EBL was 200 cc. Patient and tolerated delivery well. Presentation: SUHA Placental Delivery Description: Spontaneous Placenta Disposition: [facility] Cord Vessel Description: 3 Vessels Cord Entanglement: Around neck x 2, tight Estimated Blood Loss: 200 Infant A gender: Male (1 minute): 7 (5 minute): 8 Episiotomy Description: None Laceration: Perineal Extension/lac, 1st degree Medications given after delivery: IV Pitocin Complications: None
[2018-03-09] MEDS: Oxytocin 30 units/NS 500 ml 30 UNITS/500 ML IV.SOLN 167 UNITS IV (23:15)
[2018-03-10] MEDS: 0.9% Saline Lock 10 ML Syringe IV (00:16)
[2018-03-10 00:35] VITALS: BP 117/60; PULSE 94; RESP 18; TEMP 37
[2018-03-10] MEDS: Naproxen 250 MG Tablet PO ×2 (02:06→18:44)
[2018-03-10 04:23] VITALS: BP 98/51; PULSE 85; RESP 18; TEMP 36.6
[2018-03-10] MEDS: Senna/Docusate Sodium 1 Tablet PO (07:50)
[2018-03-10] MEDS: Pantoprazole Sodium 40 MG Tablet PO (07:50)
[2018-03-10] MEDS: Prenatal Vits Tablet 1 TABLET PO (07:50)
[2018-03-10 08:30] VITALS: BP 110/61; PULSE 71; RESP 20; TEMP 36.4
[2018-03-10 12:00] VITALS: BP 117/56; PULSE 79; RESP 20; TEMP 36.4
[2018-03-10 16:00] VITALS: BP 118/63; PULSE 96; RESP 18; TEMP 36.8
[2018-03-10 20:41] VITALS: BP 102/57; PULSE 86; RESP 16; TEMP 36.4
[2018-03-10] MEDS: Ferrous Sulfate 325 MG Tablet PO (21:04)
[2018-03-11 00:48] VITALS: BP 119/68; PULSE 68; RESP 16; TEMP 36.3
[2018-03-11 08:50] VITALS: BP 110/56; PULSE 94; RESP 20; TEMP 36.6
--- NOTE | 2018-03-11 09:37 | PN.OBGYN_ITS ---
Patient Problems: Active and Suspected Problems (Last Reviewed 03/09/18 @ 11:02 by Judi Mistry) Active labor at term (Acute) Subjective: doing well no complaints - Physical Exam Vital Signs Temp Pulse Resp BP 97.9 F 94 20 H 110/56 L 03/11/18 08:50 03/11/18 08:50 03/11/18 08:50 03/11/18 08:50 Oxygen Delivery Method Room Air Weight: 132 lb 7.965 oz Body Mass Index (BMI) 23.4 Intake and Output for Last 24 Hours 03/09/18 03/10/18 03/11/18 23:59 23:59 23:59 Intake Total 1776 / 1776 334 / 334 Output Total 400 / 400 600 / 600 Balance 1376 / 1376 -266 / -266 Medical Necessity - Tobacco Use Smoking Status: Never smoker Assessment/Plan All Active Problems (Last Reviewed 03/09/18 @ 11:02 by Judi Mistry) False labor (Acute) Active labor at term (Acute) Decreased movement (Resolved) labor in second trimester with delivery in third trimester ( Resolved) Anemia affecting (Acute) Supervision of normal (Acute) s/p routine care dc home today
--- NOTE | 2018-03-11 09:38 | DCINST_ITS ---
Discharge Diet: No Restrictions Discharge Activity: Return to Normal Activity, May not drive while taking narcotic pain medications., May Shower May resume sexual activity in: 4-6 weeks Call your doctor if your incision/area has: Continuous Slow Oozing, Sudden Increased Bleeding, Increased Pain/ Swelling, Increased Redness, Foul Smelling Discharge Additional Instructions: If you experience any of the following, contact your healthcare provider. * Bleeding that soaks a pad every hour for 2 hours * Fever 100.4 or higher * Unrelieved incision or abdominal pain * Swelling, redness, discharge or bleeding from your incision or episiotomy site * Your incision begins to separate * Problems urinating (including inability to urinate or burning while urinating) . * Visual changes * Severe headache * Flu-like symptoms * Pain or redness in one of both of your breasts * Pain, warmth, tenderness or swelling in your legs, especially the calf area * Frequent nausea and vomiting * Symptoms of depression or anxiety If you experience any of the following, call 911 or go to the nearest Emergency Room. * Chest pain * Problems breathing * Seizure activity * Partial or complete paralysis of a body part, slurred speech, weakness or drooping of the face, or a sudden inability to walk or hold your balance Allergies/Adverse Reactions: Allergies No Known Allergies Allergy (Verified 03/09/18 11:02) Medications to take at Discharge omeprazole 20 mg capsule,delayed release 40 mg PO QDAY 08/31/17 vitamin,calcium,esyjeehg-qbhu-hkagf acid tablet 1 tab PO QDAY 08/31/17 Ferrous Sulfate [Iron] 325 mg PO QHS 12/03/17 Please Follow Up With: Herlinda Sol MD - [phone] When: Call to make an appointment with your doctor in 6 weeks. If you had elevated Blood pressure or 4th degree laceration you will need to be seen in 2 weeks. Primary Care Physician: Lillie Villanueva PA-C [Primary Care Provider] -
--- NOTE | 2018-03-11 09:38 | PCM.DCVAG ---
Discharge Diet: No Restrictions Discharge Activity: Return to Normal Activity, May not drive while taking narcotic pain medications., May Shower May resume sexual activity in: 4-6 weeks Call your doctor if your incision/area has: Continuous Slow Oozing, Sudden Increased Bleeding, Increased Pain/ Swelling, Increased Redness, Foul Smelling Discharge Additional Instructions: If you experience any of the following, contact your healthcare provider. Bleeding that soaks a pad every hour for 2 hours Fever 100.4 or higher Unrelieved incision or abdominal pain Swelling, redness, discharge or bleeding from your incision or episiotomy site Your incision begins to separate Problems urinating (including inability to urinate or burning while urinating). Visual changes Severe headache Flu-like symptoms Pain or redness in one of both of your breasts Pain, warmth, tenderness or swelling in your legs, especially the calf area Frequent nausea and vomiting Symptoms of depression or anxiety If you experience any of the following, call 911 or go to the nearest Emergency Room. Chest pain Problems breathing Seizure activity Partial or complete paralysis of a body part, slurred speech, weakness or drooping of the face, or a sudden inability to walk or hold your balance Allergies/Adverse Reactions: Allergies No Known Allergies Allergy (Verified 03/09/18 11:02) Medications to take at Discharge omeprazole 20 mg capsule,delayed release 40 mg PO QDAY 08/31/17 vitamin,calcium,zeravvjs-wxso-vclut acid tablet 1 tab PO QDAY 08/31/17 Ferrous Sulfate [Iron] 325 mg PO QHS 12/03/17 Please Follow Up With: Herlinda Sol MD - [phone] When: Call to make an appointment with your doctor in 6 weeks. If you had elevated Blood pressure or 4th degree laceration you will need to be seen in 2 weeks. Primary Care Physician: Lillie Villanueva PA-C [Primary Care Provider] -
[2018-03-11] MEDS: Pantoprazole Sodium 40 MG Tablet PO (10:44)
[2018-03-11] MEDS: Prenatal Vits Tablet 1 TABLET PO (11:29)
== END 2018-03-11 13:50 | disposition home or self-care (01) | DRG 775 ==
PROVIDERS: Admitting Provider Obstetrics & Gynecology; Family Provider Family Medicine; PCP Family Medicine; Visit Provider Obstetrics & Gynecology
DX: O99.02 Anemia complicating childbirth (principal); D64.9 Anemia, unspecified; O70.0 First degree perineal laceration during delivery; O77.0 Labor and delivery complicated by meconium in amniotic fluid; O69.1XX0 Labor and delivery complicated by cord around neck, with compression, not applicable or unspecified; Z3A.39 39 weeks gestation of pregnancy; Z37.0 Single live birth
CPT/HCPCS: 59025; 59050; 85027; 86850; 86900; 99218; J7030; J7120; A4216; G0378

== ENCOUNTER → 2022-11-11 | Outpatient (CLI) | payer OTHER, SELFPAY | END | disposition home or self-care (01) | LOC: LABSPEC 16:14 | PROVIDERS: PCP Family Medicine; Referring Provider Obstetrics & Gynecology; Visit Provider Obstetrics & Gynecology | DX: R30.0 Dysuria (principal) | CPT/HCPCS: 87086; 87088; 87186 ==

== ENCOUNTER → 2024-08-28 | Outpatient (CLI) | payer OTHER, SELFPAY ==
--- NOTE | 2024-08-28 13:20 | US_ITS ---
STUDY: ULTRASOUND OF THE FEMALE PELVIS - COMPLETE REASON FOR EXAM: Female, 33 years old. IUD placement LMP: August 20, 2024. TECHNIQUE: Transabdominal and Transvaginal TECHNICAL QUALITY: Adequate. COMPARISON: None. FINDINGS: The uterus is retroverted and is in a midline position. The uterus measures 8.3 cm x 5 cm x 4.3 cm. Normal uterine cervix. The endometrium measures 5.9 mm in thickness, and is hyperechoic. There is no demonstrated endometrial mass. There is no demonstrated myometrial mass. I.U.D. - The patient does have an I.U.D. . The IUD is in the fundal portion of the endometrium. The right ovary is visualized. The right ovary measures 3.4 cm x 2.4 cm x 1.5 cm. There is no right ovarian cyst or ovarian mass. There is no visualized right adnexal mass or complex lesion. There is normal arterial and normal venous vascularity. The left ovary is visualized. The left ovary measures 4 cm x 2 cm x 1.3 cm. There is no left ovarian cyst or ovarian mass. There is no visualized left adnexal mass or complex lesion. There is normal arterial and normal venous vascularity. There is minimal fluid in the cul-de-sac. US/Pelvic w/ Transvaginal IMPRESSION: The IUD is within the fundal portion of the uterus. Electronically Signed: Fitz Juan MD at 14:36 EST ,
== END | disposition home or self-care (01) ==
PROVIDERS: PCP Family Medicine; Referring Provider Obstetrics & Gynecology; Visit Provider Obstetrics & Gynecology
DX: Z30.9 Encounter for contraceptive management, unspecified (principal)
CPT/HCPCS: 76830; 76856